=== PATIENT | male | born 1955 | race Caucasian/White ===

== ENCOUNTER → 2024-04-08 09:08 | Outpatient (REF) | payer BC, SELFPAY | LOC: RAD 09:08 | PROVIDERS: ATTENDING PHYSICIAN Physician Assistant Medical | DX: M54.2 Cervicalgia (principal); R22.1 Localized swelling, mass and lump, neck | CPT/HCPCS: 70491; Q9967 ==

== ENCOUNTER → 2024-09-02 06:32 | Outpatient (REF) | payer BC, SELFPAY ==
[2024-09-02 07:43] LABS: % Basophils 1.2 % (0-2); % Eosinophils 6.5 % (0-6); % Immature Granulocytes 0.3 % (0-0.5); % Lymphocytes 18.5 % (20.5-51.1); % Neutrophils 64.5 % (42.2-75.2); Absolute Basophils 0.1 10^3/uL (0-0.2); Absolute Eosinophils 0.5 10^3/uL (0-0.7); Absolute Lymphocytes 1.3 10^3/uL (1.2-3.4); Absolute Monocytes 0.6 10^3/uL (0.1-0.6); Absolute Neutrophils 4.5 10^3/uL (1.4-6.5); Hematocrit 42.5 % (39.0-52.0); Hemoglobin 14.7 g/dL (13.0-18.0); Mean Corp Hgb Conc. 34.6 g/dL (33.0-37.0); Mean Corpuscular Hgb 34.3 pg (27.0-31.0); Mean Corpuscular Volume 99.3 fL (80.0-94.0); Mean Platelet Volume 10.4 fL (7.4-10.4); Nucleated Red Blood Cells % 0 % (-); Platelet Count 266 10^3/uL (130-400); Red Blood Cell Count 4.28 10^6/uL (4.70-6.10); Red Cell Dist. Width 12.7 % (11.5-14.5); White Blood Cell Count 6.9 10^3/uL (4.8-10.8)
[2024-09-02 08:05] LABS: ALT (SGPT) 29 U/L (0-50); AST (SGOT) 32 U/L (17-59); Albumin 3.7 g/dl (3.5-5.0); Alkaline Phosphatase 71 U/L (38-126); Blood Urea Nitrogen 17 mg/dl (9-20); Carbon Dioxide 33 mmol/L (22-30); Chloride 101 mmol/L (98-107); Glucose 108 mg/dl (70-99); HDL Cholesterol 70 mg/dl; LDL Cholesterol, Calculated 134 mg/dl; Potassium 4.8 mmol/L (3.5-5.1); Sodium 138 mmol/L (135-145); Total Bilirubin 0.6 mg/dl (0.2-1.3); Total Cholesterol 222 mg/dl (50-199); Total Protein 6.6 g/dl (6.3-8.2); Triglyceride 94 mg/dl (10-149); Very Low Density Lipoprotein 18 mg/dl (0-30); eGFR > 60.00
[2024-09-02 08:10] LABS: Erythrocyte Sed Rate 17 mm/hour (0-20)
[2024-09-02 08:33] LABS: Hepatitis B Surface Antigen Negative (Negative)
[2024-09-02 08:36] LABS: TSH Reflex To Free T4 1.08 uIU/ml (0.47-4.68)
[2024-09-02 08:41] LABS: Hepatitis B Core Ab, IgM Negative (Negative)
[2024-09-02 12:31] LABS: HIV Combo Negative (Negative)
[2024-09-03 19:43] LABS: PSA Total 3.4 ng/mL (0.0-4.0)
[2024-09-03 23:56] LABS: ANA, IgG Reflex to HEp-2 None Detected (None Detected)
[2024-09-04 10:12] LABS: Rheumatoid Agglutinin Less Than 10 IU (<10 IU)
[2024-09-04 11:49] LABS: Lyme Antibody Screen, EIA Negative (Negative)
[2024-09-04 19:00] LABS: Quantiferon Mitogen minus NIL 1.72 IU/mL; Quantiferon NIL 0.02 IU/mL; Quantiferon Plus TB1 minus NIL 0.02 IU/mL (<=0.34); Quantiferon Plus TB2 minus NIL 0.03 IU/mL (<=0.34); Quantiferon TB Gold Plus Negative (Negative)
== END ==
LOC: REG 06:32
PROVIDERS: ATTENDING PHYSICIAN Physician Assistant Medical
DX: Z00.01 Encounter for general adult medical examination with abnormal findings (principal); E78.2 Mixed hyperlipidemia; Z12.5 Encounter for screening for malignant neoplasm of prostate; M35.3 Polymyalgia rheumatica; M25.50 Pain in unspecified joint; Z92.25 Personal history of immunosuppression therapy; Z11.1 Encounter for screening for respiratory tuberculosis
CPT/HCPCS: 36415; 80053; 80061; 84153; 84154; 84443; 85025; 85652; 86038; 86140; 86430; 86480; 86618; 86705; 87340; 87389

== ENCOUNTER → 2024-10-13 06:19 | Outpatient (REF) | payer BC, SELFPAY ==
[2024-10-13 08:21] LABS: % Basophils 1.8 % (0-2); % Eosinophils 9.5 % (0-6); % Immature Granulocytes 0.4 % (0-0.5); % Lymphocytes 19.6 % (20.5-51.1); % Monocytes 10.5 % (1.7-9.3); % Neutrophils 58.2 % (42.2-75.2); Absolute Basophils 0.1 10^3/uL (0-0.2); Absolute Eosinophils 0.5 10^3/uL (0-0.7); Absolute Lymphocytes 1.1 10^3/uL (1.2-3.4); Absolute Monocytes 0.6 10^3/uL (0.1-0.6); Absolute Neutrophils 3.3 10^3/uL (1.4-6.5); Hematocrit 36.6 % (39.0-52.0); Hemoglobin 12.4 g/dL (13.0-18.0); Mean Corp Hgb Conc. 33.9 g/dL (33.0-37.0); Mean Corpuscular Hgb 33.8 pg (27.0-31.0); Mean Corpuscular Volume 99.7 fL (80.0-94.0); Mean Platelet Volume 10.5 fL (7.4-10.4); Nucleated Red Blood Cells % 0 % (-); Platelet Count 270 10^3/uL (130-400); Red Blood Cell Count 3.67 10^6/uL (4.70-6.10); White Blood Cell Count 5.7 10^3/uL (4.8-10.8)
[2024-10-13 08:52] LABS: ALT (SGPT) 23 U/L (0-50); AST (SGOT) 27 U/L (17-59); Albumin 3.3 g/dl (3.5-5.0); Alkaline Phosphatase 76 U/L (38-126); Blood Urea Nitrogen 21 mg/dl (9-20); Carbon Dioxide 32 mmol/L (22-30); Chloride 105 mmol/L (98-107); Erythrocyte Sed Rate 13 mm/hour (0-20); Glucose 109 mg/dl (70-99); Potassium 4.3 mmol/L (3.5-5.1); Sodium 140 mmol/L (135-145); Total Bilirubin 0.2 mg/dl (0.2-1.3); Total Protein 6.3 g/dl (6.3-8.2); eGFR > 60.00
== END ==
LOC: REG 06:19
PROVIDERS: ATTENDING PHYSICIAN Internal Medicine; FAMILY PHYSICIAN Physician Assistant Medical
DX: M35.3 Polymyalgia rheumatica (principal); Z51.81 Encounter for therapeutic drug level monitoring
CPT/HCPCS: 36415; 80053; 85025; 85652; 86140

== ENCOUNTER → 2024-10-27 15:52 | Outpatient (REF) | payer BC, SELFPAY | LOC: RAD 15:52 | PROVIDERS: ATTENDING PHYSICIAN Physician Assistant Medical | DX: R05.1 Acute cough (principal) | CPT/HCPCS: 71046 ==

== ENCOUNTER → 2025-02-03 07:07 | Outpatient (REF) | payer BC, SELFPAY ==
[2025-02-03 09:12] LABS: Folate 18.8 ng/ml (2.76-20); Vitamin B12 680 pg/ml (239-931)
[2025-02-05 11:11] LABS: PSA Total 3.2 ng/mL (0.0-4.0)
== END ==
LOC: REG 07:07
PROVIDERS: ATTENDING PHYSICIAN Psychiatry & Neurology Neurology; FAMILY PHYSICIAN Physician Assistant Medical
DX: R97.20 Elevated prostate specific antigen [PSA] (principal); R41.3 Other amnesia; D64.9 Anemia, unspecified
CPT/HCPCS: 36415; 82607; 82746; 84153; 84154; 84425